=== PATIENT | female | born 2000 | race Hispanic/Latino ===

== ENCOUNTER 2020-09-11 22:30 | Outpatient (CLI) | payer OTHER ==
[~2020-09-11] VITALS: Ht 144.8 cm; Wt 66.0 kg
[2020-09-11 23:11] VITALS: BP 119/76
[2020-09-11] MEDS ORDERED: PRENTAB9 PO (23:11)
--- NOTE | 2020-09-12 00:31 | REPVR ---
PROCEDURE INFORMATION: Exam: US , Limited Exam date and time: 09/11/2020 11:59 PM Age: 20 years old Clinical indication: complicated by abdominal or pelvic pain; Lower; Second trimester; Gestational age or lmp: 24w 3d; ; Patient HX: Cramping; Additional info: Cervical length, placenta location, symone TECHNIQUE: Imaging protocol: Real-time ultrasound of the maternal uterus with image documentation. Exam focused on the clinical indication. COMPARISON: No relevant prior studies available. FINDINGS: Gestation: Single viable intrauterine gestation in cephalic presentation. heart rate: heart rate is 143 bpm. Placenta: Anterior placenta. Amniotic fluid index: Amniotic fluid index is 14.9 cm. MATERNAL: Cervix: Cervical length is 5 cm. Internal cervical os is closed. IMPRESSION: Single viable intrauterine gestation in cephalic presentation. Anterior placenta without evidence of abruption. Cervical length is 5 cm. Internal cervical os is closed. Amniotic fluid index is 14.9 cm. Electronically signed by: Abraham Reilly On 09/12/2020 00:31:42 AM
--- NOTE | 2020-09-12 00:48 | IPNPDOC ---
Text Note Date of Service The patient was seen on 09/12/20. NOTE 20 yo at ~24 weeks gestation presented to L&D with intermittent pelvic cramping for the last several days. Denies any bleeding or leakage of fluid. She endorses movement. Has had recent intercourse. Vitals - VSS, afebrile, normotensive, non tachycardic General - AAOX3, sitting up in bed, pleasant and conversant, NAD Abdomen - Gravid uterus, no fundal tenderness Extremities - No edema FHR tracing - Appropriate for gestational age. Moderate variability, no decels. No ctx on toco Labs: UA - Normal. Negative leuk est, neg nitrite, negative WBCs, negative bacteria, SG 1.002 Rads: Formal US demonstrated closed cervix with length of 5cm. Normal LIANNA. +FCA. No evidence of labor or infection. Suspect intermittent cramping irritation from intercourse. Recommended pelvic rest for next two weeks. If symptoms persist contact the office or follow up on L&D. All patient questions answered. DO JERRY Monroe,Job, I+O VS, Job, I+O Vital Signs Date Time Temp Pulse Resp B/P (MAP) Pulse Ox O2 Delivery O2 Flow Rate FiO2 09/11/20 23:11 97.6 96 16 119/76 (90) GEOVANNY MONROE DO Sep 12, 2020 00:48
== END 2020-09-12 00:46 | disposition home or self-care (01) ==
LOC: M LDO 22:30
PROVIDERS: ATTEND Obstetrics & Gynecology
DX: O26.892 Other specified pregnancy related conditions, second trimester (principal); Z3A.24 24 weeks gestation of pregnancy
CPT/HCPCS: 76815; 81001; G0378; G0463

== ENCOUNTER 2020-12-03 00:01 | Outpatient (CLI) | payer OTHER ==
[~2020-12-03] VITALS: Ht 144.8 cm; Wt 71.8 kg
[~2020-12-03 00:01] MED LIST: PRENTAB9 PO
[2020-12-03 00:31] VITALS: BP 135/91
[2020-12-03 00:47] VITALS: BP 127/77
--- NOTE | 2020-12-03 01:26 | IPNPDOC ---
Text Note Date of Service The patient was seen on 12/03/20. NOTE 12/03/20 patient at 36 weeks history of srom clear at 2100 hours no contractions no bleeding. Had gbs done today at 36 week visit. passport not updated last entry was 12 .1 weeks. no chart available anywhere, LMP 03/25/2020 EDC 12/30/2020 TODAY 36.2 WEEKS. PATIENT 0 POSITIVE NO GBS NO GLUCOSE AVAILABLE. PHYSICAL EXAMINATION NO DISTRESS SF HEIGHT 36 CM VERTEX PRESENTING . STERILE SPECULUM EXAMINATION CLEAR FLUID POOLED IN CUL DE SAC. NITRAZINE POSITIVE FERN POSITIVE NO CLUE CELLS NO YEAST NO BLOOD . ULTRASOUND CONSENTED TRANS ABDOMINAL VERTEX LIANNA 3 QUADRANTS 10.47 smallest VERTICAL 2.83 CM LIMB MOTION NOTED SPONTANEOUS RESPIRATIONS . CERVIX VERY POSTERIOR FINGERTIP THICK FIRM VERTEX -3 STATION. PATIENT REQUESTED TO GO HOME TO ALLOW LABOR TO START. RULES laid OUT ARE , RETURN AT 0900 REGARDLESS IF LABOR OR NOT . MONITOR CONTRACTIONS IF STARTING AND 10 MINUTES APART RETURN, IF BLEEDING RETURN, IF FEVER RETURN, IF DECREASED MOVEMENT RETURN IF FOUL SMELLING FLUID RETURN. REVIEWED WITH UNKNOWN GBS WOULD START ANTIBIOTICS WHEN ACTIVE LABOR. BOTH PATIENT AND EXPRESSED UNDERSTANDING AGREED TO PLAN OF CARE NST REVIEWED CATEGORY 1 STRIP NO DECELERATIONS NO CONTRACTIONS MODERATE VARIABILITY, BASELINE NORMAL 1 HOUR S PENT WITH PATIENT VS,Fishbone, I+O VS, Fishbone, I+O Vital Signs Date Time Temp Pulse Resp B/P (MAP) Pulse Ox O2 Delivery O2 Flow Rate FiO2 12/03/20 00:47 94 16 127/77 (94) Room Air 12/03/20 00:37 98.4 Dennis Jason MD December 03, 2020 01:26
== END 2020-12-03 01:10 | disposition home or self-care (01) ==
LOC: M LDO 00:01
PROVIDERS: ATTEND Obstetrics & Gynecology
DX: O41.8X30 Other specified disorders of amniotic fluid and membranes, third trimester, not applicable or unspecified (principal); Z3A.36 36 weeks gestation of pregnancy
CPT/HCPCS: 59025; 76815; G0378; G0463

== ENCOUNTER 2020-12-03 04:38 | Inpatient (IN) | payer OTHER ==
[2020-12-03] VITALS (8 sets, daily range): BP systolic 104–126; BP diastolic 57–70
[~2020-12-03] VITALS: Ht 144.8 cm; Wt 71.0 kg
[2020-12-03] MEDS ORDERED: OXYTOCIN 30 UNITS IN 0.9% NaCl 500ML IV BAG (J2590) As Ordered ONE (04:45)
[2020-12-03] MEDS ORDERED: OXYTOCIN INJ 10 UNITS/ML VIAL (J2590) As Ordered ONE (04:52)
[2020-12-03] MEDS ORDERED: LR 1,000 ML IV SCH (05:30)
[2020-12-03] MEDS ORDERED: ANUSOL HC CREAM 30GM TOP PRN (05:35)
[2020-12-03] MEDS ORDERED: DOCUSATE SODIUM 100MG CAPSULE PO PRN (05:35)
[2020-12-03] MEDS ORDERED: IBUPROFEN 600MG TAB PO PRN (05:35)
[2020-12-03] MEDS ORDERED: MOM 30ML SUSPENSION UDC PO PRN (05:35)
[2020-12-03] MEDS ORDERED: MEASLES,MUMPS,RUBELLA VACCINE INJ (MMR-II) (90707) SC SCH (05:35)
[2020-12-03] MEDS ORDERED: DIBUCAINE 1% OINTMENT 30GM TOP PRN (05:35)
[2020-12-03] MEDS ORDERED: IBUPROFEN 800 MG TAB PO PRN (05:35)
[2020-12-03] MEDS ORDERED: ACETAMINOPHEN TAB 650MG DOSE (2X325MG) PO PRN (05:35)
[2020-12-03] MEDS ORDERED: METHYLERGONOVINE MALEATE 0.2 MG TAB PO PRN (05:35)
[2020-12-03] MEDS ORDERED: OXYTOCIN DRIP 30 UNITS in IV 1 EA IV ONE (05:35)
[2020-12-03] MEDS ORDERED: ACETAMINOPHEN 500 MG TAB PO PRN (05:35)
[2020-12-03] MEDS ORDERED: RHOGAM 300 MCG (1500 IU) INJ (J2790) IM SCH (05:35)
[2020-12-03] MEDS ORDERED: OXYTOCIN INJ 10 UNITS/ML VIAL (J2590) IV ONE (05:35)
[2020-12-03 05:51] LABS: CORD GAS ABE V -6.2; CORD GAS O2 SAT V 42.1 %; CORD GAS PH V 7.267 UNITS; CORD GAS PO2 V 19.9 mmHg; CORD GAS SBC V 18.1 MEQ/L; CORD GAS TCO2 V 22.4 MEQ/L
[2020-12-03 05:52] LABS: CORD GAS ABE A -7.5; CORD GAS HCO3 A 22.3 MEQ/L; CORD GAS O2 SAT A 15.2 %; CORD GAS PCO2 A 62.8 mmHg; CORD GAS PH A 7.168 UNITS; CORD GAS PO2 A 11.5 mmHg; CORD GAS SBC A 16.6 MEQ/L; CORD GAS TCO2 A 24.2 MEQ/L
--- NOTE | 2020-12-03 06:11 | HPEPDOC ---
Obstetrical History & Physical General Date of Admission December 03, 2020 at 04:46 Primary Care Physician: Dennis Jason MD History of Present Illness SPONTANEOUS RUPTURE MEMBRANES FULLY DILATED PUSHING ON ADMISSION Chief Complaint: Contractions, term Information Provided By: Patient Age: 20 : 1 Term: 0 Pre-term: 1 Abortions: 0 Livin Care Care: Good Care Dating Final EDC: Dec 30, 2020 LMP: Mar 25, 2020 Estimated Date of Confinement: Jan 09, 2021 EGA at Admission: 36.3 Antepartum Course Diagnos(e)s PUSHING Height (inches): 59 Past Medical History Past Obstetrical History : Past Obstetrical History: Primgravida Date of Delivery: December 03, 2020 Gestation: 36.3 Type of Delivery: Spontaneous Vaginal Del. Sex of : Female Weight of Infant (grams): 2230 Complications: No REFRIGERATION TECH History: No pertinent history Past Medical History Surgical History: Denies/None Family History Significant Family History: No pertinent family hx Social History Marital Status: Family situation: Spouse/partner home Psychosocial History: No pertinent psych hx * Smoker: non-smoker Alcohol: Denies Drugs: denies Abuse Violence Screening Have you been hit/kicked/slapp: No Have you been sexually assault: No Imunizations Tdap status: current Influenza Status: current Allergies Coded Allergies: No Known Allergies (Unverified , 09/11/20) Medications Scheduled No.137/Iron/Folic Acd ( Vitamin Tablet) 1 Each Tablet, 1 TAB PO DAILY Physical Examination Physical Examination GENERAL: Alert and oriented times three. BREAST: . ABDOMEN: Gravid and non-tender to touch. FETUS: Is vertex (VTX) by sterile vaginal examination (SVE), fetus is vertex (VTX) by Nathan. HEART RATE: Regular rate and rhythm. LUNGS: Clear to auscultation (CTA). EXTREMITIES: No edema. No clonus. Deep tendon reflexes (DTRs) + . Other physical findings ACTIVE LABOR PUSHING ON ADMISSION Vital Signs/I&O Vital Signs Date Time Temp Pulse Resp B/P (MAP) Pulse Ox O2 Delivery O2 Flow Rate FiO2 12/03/20 05:16 100.0 83 126/70 (88) Laboratory Data 24H LABS Laboratory Tests 2 12/03/20 05:47: Cord Arterial Blood pH 7.168, Cord Arterial Blood PCO2 62.8, Cord Arterial Blood PO2 11.5, Cord Arterial Blood HCO3 22.3, Cord Arterial Blood Total CO2 24.2, Cord Arterial Blood Base Excess -7.5, Cord Arterial Base Excess (Standard 16.6, Cord Arterial Bld Oxygen Saturation 15.2, Cord Venous Blood pH 7.267, Cord Venous Blood PCO2 47.0, Cord Venous Blood PO2 19.9, Cord Venous Blood HCO3 21.0, Cord Venous Blood Total CO2 22.4, Cord Venous Base Excess (Actual) -6.2, Cord Venous Base Excess (Standard) 18.1, Cord Venous Blood Oxygen Saturation 42.1 Pertinent Laboratoy Data Blood Type: O+ RBC Antibody Screen: Negative HIV: Negative Hepatitis B: Negative Rapid Plasma Reagin: Nonreactive Rubella: Immune Varicella: Immune Chlamydia/Gonorrhea: Negative Group B Streptococcus: Unknown Cystic Fibrosis: Negative Anatomy Ultrasound Normal Anatomy: Yes Placenta Previa: No Steroid Therapy Steroid Therapy: No Vaginal Examination Dilation: complete Effacement: 100% Station: +1 Cervical Consistency: Soft Cervical Position: Anterior Presentation: Cephalic presentation Assessment Variability: Moderate Accelerations: Present Decelerations: None Tocometer Frequency: regular Duration: less than 60 seconds Strength: palpated as strong Assessment/Plan Assessment 20-year-old (G)1 para (P)0 at 36.3 weeks Presents to Labor and Delivery (L&D) .FULLY AND PUSHING Plan 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 Diet: NPO Group B Streptococcus (GBS) UNKNOWN Labs and intravenous (IV) per unit protocol. Counseled on Pitocin POST . Lactated Ringers (LR): [id number] mL, then at 125mL/hr. Anticipate [normal spontaneous delivery ()]. C-S as appropriate. Dennis Jason MD December 03, 2020 06:10
[2020-12-03 06:15] LABS: MEAN CORPUSCULAR HEMOGLOBIN 29.8 pg (27.0-33.0); MEAN CORPUSCULAR HGB CONC 34.3 g/dl (32.0-36.5); MEAN CORPUSCULAR VOLUME 86.8 fl (80.0-96.0); PLATELET COUNT, AUTOMATED 256 10^3/uL (150-450); RED BLOOD COUNT 4.03 10^6/uL (4.00-5.40)
[2020-12-03] MEDS: PRENATAL VITAMINS CHEWABLE TABLET PO SCH (09:00)
[2020-12-03 09:41] LABS: HIV 1&2 SCREEN CENTAUR NEGATIVE (NEGATIVE)
--- NOTE | 2020-12-03 12:33 | DN ---
DELIVERY NOTE DATE OF DELIVERY: 12/03/2020 This lady is a 20-year-old 1, now para 1, admitted in active labor with spontaneous rupture of membranes at 36 and 3 weeks of gestation, fully dilated and pushing. She had a spontaneous vaginal delivery, a live- female infant, 4 pounds 15 ounces, 2230 grams, scores of 8 and 9 at one and five minutes, respectively. Cord loose times one. Arterial pH 7.16, base excess -7.15, venous pH 7.26, base excess -6.2. The placenta delivered spontaneously thereafter. Three vessels in the cord. Membranes and tissues intact. Uterus contracted well down on Pitocin. On review of the vagina, anterior and posterior loco were intact. No tears. Sphincter was tight and closed. Patient and baby tolerating procedure well.
[2020-12-04 06:00] VITALS: BP 118/69
--- NOTE | 2020-12-04 06:33 | IPNPDOC ---
Progress Note Date of Service: December 04, 2020 Day#: 1 Progress Note SUBJECT: Ms. Harding is a 20yo PPD1 s/p . She has been ambulating, void ing spontaneously without issue and tolerating regular diet. Breast feeding without issue. Reports lochia is like a normal period. Patient is ambulating well. Reports some cramping with . Denies any pain. Voiding and passing flatus without difficulty. OBJECTIVE: VITAL SIGNS: Within normal limits, afebrile. Alert and oriented times three. No increased WOB Heart rate: non-tachycardic Abdomen: Fundus firm at U-2. Soft, NTTP. Minimal lochia per pt. ASSESSMENT: Ms. Harding is a 20yo PPD1 s/p . Vitals within normal limits, afebrile, hemodynamically stable with no evidence of infection. PLAN: 1. Discharge to home likely tomorrow. 2. Tylenol and Motrin for pain. 3. Encourage breast feeding and ambulation. 4. 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 Routine PP visit in 6 weeks in clinic. 6. Discussed return precautions at length. VS, I&O, 24H, Fishbone Vital Signs/I&O Vital Signs Date Time Temp Pulse Resp B/P (MAP) Pulse Ox O2 Delivery O2 Flow Rate FiO2 12/03/20 18:00 99.1 87 16 112/57 (75) 96 Room Air I&O- Last 24 Hours up to 6 AM 12/04/20 06:00 Intake Total 1000 ml Output Total 200 ml Balance 800 ml Laboratory Data 24H LABS Laboratory Tests 2 12/03/20 07:59: Serology Scanned Report Hepatitis B Testing JEMAL GOMEZ DO December 04, 2020 06:33
[2020-12-04 07:05] LABS: HEMATOCRIT 34.5 % (36.0-47.0); HEMOGLOBIN 11.5 g/dl (12.0-15.5); MEAN CORPUSCULAR HEMOGLOBIN 29.6 pg (27.0-33.0); MEAN CORPUSCULAR HGB CONC 33.3 g/dl (32.0-36.5); MEAN CORPUSCULAR VOLUME 88.9 fl (80.0-96.0); PLATELET COUNT, AUTOMATED 215 10^3/uL (150-450); RED BLOOD COUNT 3.88 10^6/uL (4.00-5.40); WHITE BLOOD COUNT 12.2 10^3/uL (4.0-10.0)
[2020-12-04] MEDS: PRENATAL VITAMINS CHEWABLE TABLET PO SCH (08:45)
[2020-12-04 17:54] VITALS: BP 119/63
[2020-12-05 06:00] VITALS: BP 115/67
[2020-12-05] MEDS ORDERED: IBUP80TA PO (07:23)
[2020-12-05] MEDS ORDERED: ACET-683 PO (07:23)
[2020-12-05] MEDS ORDERED: DIBU28OI2 TOP (07:23)
--- NOTE | 2020-12-05 07:37 | DS.PDOC ---
Discharge Summary General Date of Admission December 03, 2020 at 04:46 Date of Discharge December 05, 2020 Discharge Summary HOSPITAL COURSE: Ms. Hadring is a 20 yo G1 now P1 who underwent an uncomplicated, precipitous at 36+1 weeks on 03Dec2020 after being admitted for active labor. Her course was unremarkable. On her day of discharge she met all appropriate discharge criteria. She was ambulating, voiding, tolerating a regular diet, and had minimal lochia. DISCHARGE MEDICATIONS: Please see below. ALLERGIES: Please see below. PHYSICAL EXAMINATION ON DISCHARGE: VITAL SIGNS: Please see below. GENERAL: AAOX3, NAD ABDOMINAL EXAMINATION: Fundus firm at U-2. No fundal tenderness EXTREMITIES: No edema PSYCHIATRIC EXAMINATION: Affect appropriate LABORATORY DATA: Please see below. ACTIVITY: Pelvic rest for 6 weeks DIET: Regular DISCHARGE PLAN: Discharge home DISPOSITION: Discharge home or to [facility] on 05Dec2020. DISCHARGE INSTRUCTIONS: 1. Nothing in the vagina for 6 weeks ITEMS TO FOLLOWUP ON ON OUTPATIENT: 1. Call to schedule a visit for 6 weeks post delivery 2. 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 TIME SPENT ON DISCHARGE: Greater than 20 minutes. Geovanny Monroe DO Vital Signs/I&Os Vital Signs Date Time Temp Pulse Resp B/P (MAP) Pulse Ox O2 Delivery O2 Flow Rate FiO2 12/05/20 06:00 97.5 82 18 115/67 (83) 97 Room Air Discharge Medications Scheduled No.137/Iron/Folic Acd ( Vitamin Tablet) 1 Each Tablet, 1 TAB PO DAILY, (Reported) Scheduled PRN Acetaminophen (Acetaminophen) 500 Mg Tablet, 1,000 MG PO Q6HP PRN for PAIN LEVEL 6-10 Dibucaine (Dibucaine) 28 Gm Oint...g., 0 DOSE TOP Q4H PRN for PAIN Ibuprofen (Ibuprofen) 800 Mg Tablet, 800 MG PO Q8HP PRN for PAIN LEVEL 6-10 Allergies Coded Allergies: No Known Allergies (Unverified , 09/11/20) GEOVANNY MONROE DO December 05, 2020 07:37
[2020-12-05] MEDS: PRENATAL VITAMINS CHEWABLE TABLET PO SCH (07:57)
== END 2020-12-05 13:30 | disposition home or self-care (01) | DRG 807 ==
LOC: M LDO 04:38 → M LDI 04:46 → M OBS 06:58
PROVIDERS: ADMIT Obstetrics & Gynecology; ATTEND Obstetrics & Gynecology
PROC: 10E0XZZ Delivery of Products of Conception, External Approach (ICD-10-PCS; principal; 2020-12-03)
DX: O42.013 Preterm premature rupture of membranes, onset of labor within 24 hours of rupture, third trimester (principal); Z37.0 Single live birth; Z3A.36 36 weeks gestation of pregnancy; O69.81X0 Labor and delivery complicated by cord around neck, without compression, not applicable or unspecified